=== PATIENT | male | born 1965 | race Two or more races ===

== ENCOUNTER 2018-01-31 18:34 | Emergency (ER) | payer OTHER ==
[~2018-01-31] VITALS: Ht 175.3 cm; Wt 117.5 kg
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
[2018-01-31] MEDS ORDERED: IBUPROFEN 400 MG TABLET ONE ×2 (18:49→18:52)
--- NOTE | 2018-01-31 18:56 | NUR ---
X-RAY TECH AT BEDSIDE
[2018-01-31] MEDS ORDERED: IBUPROFEN 400 MG TABLET PO ONE (19:00)
[2018-01-31 19:21] VITALS: BP 148/70
== END 2018-01-31 19:22 | disposition home or self-care (01) ==
LOC: ER 18:35
DX: S80.11XA Contusion of right lower leg, initial encounter (principal); S00.83XA Contusion of other part of head, initial encounter; I10 Essential (primary) hypertension; V49.49XA Driver injured in collision with other motor vehicles in traffic accident, initial encounter; Y93.89 Activity, other specified; Y92.410 Unspecified street and highway as the place of occurrence of the external cause; Y99.8 Other external cause status
CPT/HCPCS: 73590; 99284; A4606; Z7610